=== PATIENT | female | born 1980 | race Caucasian/White ===

== ENCOUNTER 2016-07-30 17:05 | Emergency (ER) | payer SELFPAY ==
[2016-07-30] MEDS ORDERED: IBUPROFEN 600 MG TABLET ONE (18:03)
[2016-07-30] MEDS ORDERED: LIDOCAINE 2% UROJECT 10 ML ONE (18:12)
== END 2016-07-30 19:06 | disposition home or self-care (01) ==
LOC: ED 17:05
DX: S81.852A Open bite, left lower leg, initial encounter (principal); F17.210 Nicotine dependence, cigarettes, uncomplicated; W54.0XXA Bitten by dog, initial encounter; Y92.009 Unspecified place in unspecified non-institutional (private) residence as the place of occurrence of the external cause
CPT/HCPCS: 99283 ×2; A9270 ×2